=== PATIENT | female | born 1975 | race Caucasian/White ===

== ENCOUNTER 2020-03-06 16:25 | Emergency (ER) | payer MEDICAID ==
[2020-03-06] MEDS ORDERED: cefTRIAXone 2 GM Vial IVPUSH ONE (17:30)
[2020-03-06] MEDS ORDERED: Sodium Chloride 0.9% 1,000 ML IV ONE (17:31)
[2020-03-06] MEDS ORDERED: cefTRIAXone 1 GM Vial IVPUSH ONE (17:48)
[2020-03-06] MEDS ORDERED: Ketorolac 30 MG/ML SDV IVPUSH ONE (17:49)
--- NOTE | 2020-03-06 18:00 | EDM.PDOC ---
ED HPI GENERAL MEDICAL PROBLEM - General Chief Complaint: Abdominal Pain Stated Complaint: PAIN IN RIGHT SIDE Time Seen by Provider: 03/06/20 17:10 Source of Information: Reports: Patient History Limitations: Reports: No Limitations - History of Present Illness INITIAL COMMENTS - FREE TEXT/NARRATIVE: c/o R flank pain x 3h pain 8/10 and difficult to breath or talk x 2h, now 6/10 h/o c/s x 2 and hys, no other surgery no prior problems with GI/liver/kidneys may have had a UTI in past tx'ed at home with cranberry juice temp 96.5 at home, did feel hot and cold, no sweats took APAP early on, did not think it helped no 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, 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 no radiation, sharp, no change with walking or deep breath ate mashed potatoes and avococados ("that needed to be eaten") for lunch Treatments 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 R upper abdomen Pain Score (Numeric/FACES): 8 - Related Data Allergies Allergy/AdvReac Type Severity Reaction Status Date / Time No Known Allergies Allergy Verified 03/06/20 17:08 Home Meds: Home Meds Amoxicillin/Clavulanate K [Augmentin 875-125 MG] 1 tab PO BID #14 tablet 03/06/20 [Rx] Past Medical History Gastrointestinal History: Reports: None Genitourinary History: Reports: None PONDMAN History: Reports: Other PONDMAN History: - Infectious Disease History Infectious Disease History: Reports: Chicken Pox - Past Surgical History HEENT Surgical History: Reports: Oral Surgery GI Surgical History: Reports: None Female Surgical History: Reports: Section, Hysterectomy, Other (See Below) Other Female Surgeries/Procedures: CS x 2, partial hyst Social & Family History - Family History Family Medical History: No Pertinent Family History - Tobacco Use Tobacco Use Status *Q: Never Tobacco User - Caffeine Use Caffeine Use: Reports: Coffee - Alcohol Use Days Per Week of Alcohol Use: 3 Number of Drinks Per Day: 2 Total Drinks Per Week: 6 - Recreational Drug Use Recreational Drug Use: No ED ROS GENERAL - Review of Systems Review Of Systems: See Below Constitutional: Reports: Fever, Chills. Denies: Malaise, Weakness, Fatigue, Night Sweats, Diaphoresis, Decreased Appetite HEENT: Reports: No Symptoms Respiratory: Reports: No Symptoms Cardiovascular: Reports: No Symptoms Endocrine: Reports: No Symptoms GI/Abdominal: Reports: Abdominal Pain. Denies: Constipation, Diarrhea, Nausea, Stool Incontinence, Vomiting : Reports: Flank Pain. Denies: Dysuria, Frequency, Incontinence, Urgency Musculoskeletal: Reports: No Symptoms Skin: Reports: No Symptoms Neurological: Reports: No Symptoms Psychiatric: Reports: No Symptoms Hematologic/Lymphatic: Reports: No Symptoms Immunologic: Reports: No Symptoms ED EXAM, GI/ABD - Physical Exam Exam: See Below Exam Limited By: No Limitations General Appearance: Alert, WD/WN, No Apparent Distress, Other (appears comfortable with 6/10 pain, sits and breaths and walks without hesitation or splinting) Nose: Normal Inspection Head: Atraumatic, Normocephalic Neck: Normal Inspection, Supple, Non-Tender, Full Range of Motion. No: Lymphadenopathy (R), Lymphadenopathy (L) Respiratory/Chest: No Respiratory Distress, Lungs Clear, Normal Breath Sounds Cardiovascular: Regular Rate, Rhythm, No Murmur GI/Abdominal Exam: Normal Bowel Sounds, Soft, No Distention, Other (no CVAT b/l, mild tender at R flank only to deep palpation, no guard/rebound) Back Exam: Normal Inspection, Full Range of Motion. No: CVA Tenderness (R), CVA Tenderness (L) Extremities: Normal Inspection, Normal Range of Motion, Non-Tender, No Pedal Edema Neurological: Alert, Oriented, CN II-XII Intact, Normal Cognition, Normal Gait, No Motor/Sensory Deficits Psychiatric: Normal Affect, Normal Mood Skin Exam: Warm, Dry, Intact, Normal Color, No Rash Lymphatic: No Adenopathy Course - Vital Signs Last Recorded V/S: Last Vital Signs Temp 35.9 C L 03/06/20 16:30 Pulse 77 03/06/20 18:10 Resp 18 03/06/20 18:10 BP 134/83 03/06/20 18:10 Pulse Ox 100 03/06/20 18:10 - Orders/Labs/Meds Orders: Active Orders 24 hr Category Date Time Status Abdomen Pelvis wo Cont [CT] Stat Exams 03/06/20 17:29 Taken CBC WITH AUTO DIFF [HEME] Stat Lab 03/06/20 17:00 Received CULTURE URINE [RM] Stat Lab 03/06/20 16:40 Received Labs: Laboratory Tests 11/03/06/20 03/06/20 Range/Units 16:55 17:00 17:00 Sodium 138 (135-145) mmol/L Potassium 3.7 (3.5-5.3) mmol/L Chloride 100 (100-110) mmol/L Carbon Dioxide 28 (21-32) mmol/L BUN 10 (7-18) mg/dL Creatinine 0.7 (0.55-1.02) mg/dL Est Cr Clr Drug Dosing 103.46 mL/min Estimated GFR (MDRD) > 60 (>60) BUN/Creatinine Ratio 14.3 (9-20) Glucose 115 (80-116) mg/dL Calcium 9.3 (8.6-10.2) mg/dL Total Bilirubin 0.3 (0.1-1.3) mg/dL AST 15 (5-25) IU/L ALT 24 (12-36) U/L Alkaline Phosphatase 45 L (56-112) IU/L C-Reactive Protein < 0.2 L (0.5-0.9) mg/dL Total Protein 7.7 (6.0-8.0) g/dL Albumin 4.2 (3.5-5.2) g/dL Globulin 3.5 g/dL Albumin/Globulin Ratio 1.2 Lipase 90 (73-393) U/L Urine Color Yellow (YELLOW) Urine Appearance Slightly cloudy (CLEAR) Urine pH 5.0 (5.0-6.5) Ur Specific [place] 1.025 (1.010-1.025) Urine Protein Negative (NEGATIVE) mg/dL Urine Glucose (UA) Normal (NORMAL) mg/dL Urine Ketones 15 H (NEGATIVE) mg/dL Urine Occult Blood Negative (NEGATIVE) Urine Nitrite Negative (NEGATIVE) Urine Bilirubin Negative (NEGATIVE) Urine Urobilinogen 1 H (NEGATIVE) mg/dL Ur Leukocyte Esterase Small H (NEGATIVE) Urine RBC 0-5 (0-5) Urine WBC 5-10 H (0-5) Ur Squamous Epith Cells Few H (NS,R,O) Urine Bacteria Moderate H (NS) Meds: Medications Discontinued Medications Generic Name Dose Route Start Last Admin Trade Name Freq PRN Reason Stop Dose Admin Ceftriaxone Sodium 1 gm 03/06/20 17:30 03/06/20 18:05 Rocephin IVPUSH 03/06/20 17:31 Not Given ONETIME ONE Ceftriaxone Sodium 1 gm 03/06/20 17:48 03/06/20 18:05 Rocephin IVPUSH 03/06/20 17:49 1 gm ONETIME ONE Administration Sodium Chloride 1,000 mls @ 999 mls/hr 03/06/20 17:31 03/06/20 18:00 Normal Saline IV 03/06/20 18:31 999 mls/hr .BOLUS ONE Administration Ketorolac Tromethamine 30 mg 03/06/20 17:49 03/06/20 18:00 Toradol IVPUSH 03/06/20 17:50 30 mg ONETIME ONE Administration - Re-Assessments/Exams Free Text/Narrative Re-Assessment/Exam: 03/06/20 19:10 CT abd/pelvis without contrast neg CBC sent to [facility] and pending at time of d/c yet, hx and PE and current labs and CT also c/w R pyelo doubt PUD/GB issues/GI issues/intra-abd infection pt understands instructions Departure - Departure Time of Disposition: 19:03 Disposition: Home, Self-Care 01 Condition: Good Clinical Impression: Pyelonephritis of right kidney - Discharge Information *PRESCRIPTION DRUG MONITORING PROGRAM REVIEWED*: Not Applicable *COPY OF PRESCRIPTION DRUG MONITORING REPORT IN PATIENT BRADY: Not Applicable Prescriptions: Amoxicillin/Clavulanate K [Augmentin 875-125 MG] 1 tab PO BID #14 tablet Instructions: Ketorolac injection, Ceftriaxone injection, Pyelonephritis, Adult Referrals: PCP,None [Ordering Only Provider] - Additional Instructions: For infection, take the antibiotic amoxicillin-clavulante 875/125 mg 1 tab 2 times a day for 7 days. For pain and inflammation, take ibuprofen 200 mg 3 tabs and acetaminophen 500 mg 2 tabs 4 times a day for 2 days, longer if needed. Rest for 2 days. Increase fluids. Return to ED if you are feeling worse. See your doctor in 2 days if you are not feeling much better. Otherwise, see your doctor in 8 days. Sepsis Event Note (ED) - Evaluation Sepsis Screening Result: No Definite Risk - Focused Exam Vital Signs: Vital Signs Temp Pulse Resp BP Pulse Ox 03/06/20 18:10 77 18 134/83 100 03/06/20 16:30 35.9 C L 76 18 139/100 H 99 - My Orders Last 24 Hours: My Active Orders 03/06/20 16:40 CULTURE URINE [RM] Stat 03/06/20 17:00 CBC WITH AUTO DIFF [HEME] Stat 03/06/20 17:29 Abdomen Pelvis wo Cont [CT] Stat - Assessment/Plan Last 24 Hours: My Active Orders 03/06/20 16:40 CULTURE URINE [RM] Stat 03/06/20 17:00 CBC WITH AUTO DIFF [HEME] Stat 03/06/20 17:29 Abdomen Pelvis wo Cont [CT] Stat
== END 2020-03-06 19:15 | disposition home or self-care (01) ==
LOC: FB.ED 16:25
DX: N12 Tubulo-interstitial nephritis, not specified as acute or chronic (principal)
CPT/HCPCS: 36415; 74176; 80053; 81001; 83690; 85025; 86140; 87086; 96374; 96375; 99284; J0696; J1885; J7030